=== PATIENT | female | born 1960 | race Caucasian/White ===

== ENCOUNTER 2022-02-05 07:56 | Inpatient (IN) | payer OTHER ==
[~2022-02-05] VITALS: Ht 165.1 cm; Wt 54.9 kg
--- NOTE | 2022-02-05 08:00 | NUR ---
TO ER BED1. [id number] FROM HOME FOR C/O ABDOMINAL PAIN 04/18 X1 DAY. DENIES N/V. ATTACHED TO MONITOR. WARM BLANKET PROVIDED FOR COMFORT. DR ANDREW AT BEDSIDE. AWAITING MD ORDERS.
[2022-02-05 08:38] LABS: BASOPHILS % (AUTO) 0.4 % (0.0-2.0); EOSINOPHILS % (AUTO) 1.6 % (0.0-6.0); HEMATOCRIT 39 % (33-45); HEMOGLOBIN 13.1 g/dL (11.5-14.8); LYMPHOCYTES # (AUTO) 0.5 K/uL (0.8-4.8); LYMPHOCYTES % (AUTO) 11.9 % (20.0-44.0); MEAN CORPUSCULAR HGB CONC 34 g/dl (31.0-36.0); MEAN CORPUSCULAR VOLUME 90 fL (82-100); MONOCYTES # (AUTO) 0.3 K/uL (0.1-1.30); MONOCYTES % (AUTO) 7.3 % (2.0-12.0); NEUTROPHILS # (AUTO) 3.3 K/uL (1.8-8.9); NEUTROPHILS % (AUTO) 78.8 % (43.0-81.0); PLATELET COUNT (AUTO) 175 K/uL (150-450); RED BLOOD CELL COUNT(AUTO) 4.35 MIL/uL (4.0-5.2); WHITE BLOOD COUNT (AUTO) 4.1 K/uL (4.3-11.0)
--- NOTE | 2022-02-05 08:41 | NUR ---
PT TAKEN TO CT VIA SUSIE
[2022-02-05 08:49] LABS: ALBUMIN 3.6 g/dL (3.4-5.0); BILIRUBIN,DIRECT 0.1 mg/dL (0.0-0.2); BILIRUBIN,TOTAL 0.4 mg/dL (0.2-1.0); CREATININE 0.8 mg/dL (0.6-1.3); POTASSIUM 3.9 mmol/L (3.5-5.1); TOTAL PROTEIN, SERUM 6.9 g/dL (6.4-8.2)
[2022-02-05 08:54] LABS: CALCIUM, SERUM 8.1 mg/dL (8.5-10.1)
--- NOTE | 2022-02-05 09:29 | NUR ---
COVID TEST COLLECTED AND SENT
[2022-02-05] MEDS ORDERED: IV NS 0.9% 1,000 ML BAG IV ONE (09:30)
[2022-02-05] MEDS ORDERED: HYDROMORPHONE 1 MG/1 ML DISP.SYRIN ONE ×2 (09:32→12:18)
[2022-02-05] MEDS ORDERED: ONDANSETRON HCL/PF 4 MG/2 ML VIAL ONE ×2 (09:32→13:25)
--- NOTE | 2022-02-05 09:38 | NUR ---
VERBAL ORDER FROM DR ANDREW 0.5MG DILAUDID IV FOR PAIN AND 4MG OF ZOFRAN IV.
--- NOTE | 2022-02-05 09:55 | NUR ---
STILL NOT ABLE TO PROVIDE URINE DESPITE NUMEROUS REQUESTS
[2022-02-05] MEDS ORDERED: HYDROMORPHONE 1 MG/1 ML DISP.SYRIN IV ONE ×2 (10:00→21:45)
[2022-02-05] MEDS ORDERED: ONDANSETRON HCL/PF - ER 4 MG/2 ML VIAL IV ONE (10:00)
--- NOTE | 2022-02-05 11:07 | NUR ---
URINE COLLECTED AND SENT TO THE LAB
[2022-02-05 11:26] LABS: BILIRUBIN,URINE NEGATIVE (NEGATIVE); COLOR,URINE YELLOW (YELLOW); LEUKOCYTE ESTERASE ,URINE NEGATIVE (NEGATIVE); NITRITE, URINE NEGATIVE (NEGATIVE); PROTEIN,URINE NEGATIVE (NEGATIVE); UGLUCOSE NEGATIVE (NEGATIVE); UROBILINOGEN,URINE 0.2 EU/dL (0.2)
[2022-02-05] MEDS ORDERED: MAGNESIUM HYDROXIDE 30 ML UDC PO PRN (11:30)
[2022-02-05] MEDS ORDERED: Z GUARD REMEDY 4 OZ OINT TP PRN (11:30)
[2022-02-05] MEDS ORDERED: HYDROMORPHONE INJ 2 MG/ML DISP.SYRIN IV PRN (11:30)
[2022-02-05 11:44] LABS: BACTERIA,URINE Few /HPF (None Seen); RBC,URINE 0-2 /HPF (0-2); WBC,URINE 0-2 /HPF (0-3)
--- NOTE | 2022-02-05 11:56 | NUR ---
SEEN BY DR PANIAGUA
[2022-02-05] MEDS: IV NS 0.9% 1,000 ML IV PRN (12:36)
--- NOTE | 2022-02-05 12:56 | NUR ---
Kathy virgen in ED - 02/05/22 at 1440 by SOPHIE REFUSED NG TUBE INSERTION AND SIGNING CONSENTS FOR SURGERY TILL SHE TALKS TO DR MIR MD AWARE
[2022-02-05] MEDS: ONDANSETRON HCL/PF 4 MG/2 ML VIAL IVP PRN (13:30)
--- NOTE | 2022-02-05 14:37 | NUR ---
PERES AT THE BEDSIDE
--- NOTE | 2022-02-05 14:39 | NUR ---
Kathy virgen in [facility] - 02/05/22 at 1442 by AVELINO PERES AT THE [facility]
--- NOTE | 2022-02-05 15:14 | NUR ---
BED GIVEN 320-1 AFTER SURGERY
--- NOTE | 2022-02-05 15:26 | NUR ---
REPORT GIVEN TO OR NURSE JANESSA
--- NOTE | 2022-02-05 15:26 | NUR ---
THE PATIENT IS TRANSFERED TO OR IN STABLE CONDITION AND PER POLICY
[2022-02-05] MEDS ORDERED: FENTANYL PF 250MCG/5ML AMPUL ONE (16:33)
[2022-02-05] MEDS ORDERED: MIDAZOLAM HCL 2 MG/2ML VIAL ONE (16:34)
[2022-02-05] MEDS ORDERED: HYDROMORPHONE INJ 2 MG/ML DISP.SYRIN ONE (16:34)
[2022-02-05] MEDS ORDERED: FAMOTIDINE/PF INJ 20 MG/2 ML VIAL IV ONE (16:35)
[2022-02-05] MEDS ORDERED: GLYCOPYRROLATE 0.2 MG/ML VIAL ONE (16:55)
[2022-02-05] MEDS ORDERED: CLINDAMYCIN 900 MG/6 ML VIAL ONE (16:55)
[2022-02-05] MEDS ORDERED: BUPIVACAINE 0.5 % PF 150 MG/30 ML VIAL ONE (17:01)
[2022-02-05] MEDS ORDERED: METRONIDAZOLE 500MG/ NS 100ML 100 ML IV ONE (17:01)
[2022-02-05] MEDS ORDERED: LEVOFLOXACIN 500 MG /D5W 100ML 100 ML IV ONE (17:01)
[2022-02-05] MEDS ORDERED: ANESTHESIA TRAY IN PYXIS 1 EA TRAY MC ONE (18:17)
[2022-02-05] MEDS ORDERED: FENTANYL PF 100MCG/2ML AMPUL ONE (18:28)
[2022-02-05 19:05] VITALS: BP 116/72
--- NOTE | 2022-02-05 19:06 | NUR ---
RN Receiving report. PT AOx4, VSS, states pain is 10/10. Able to express concerns. Pt arrived with one abdominal dressing, clean, dry and intact. O.R. Nurse provides report. All safety precautions take, table and call light at bedside, bed at lowest position.
--- NOTE | 2022-02-05 19:15 | NUR ---
TELE/RN ADMITTING NOTE RECEIVED REPORT FROM KEVYN GAMINO. PATIENT ARRIVED TO UNIT FROM OR AT APPROX. 1900. PATIENT WAS ADMITTED WITH CECAL VOLVULUS S/P RIGHT HEMICOLECTOMY WITH DR. HESTER. PATIENT IS ALERT AND ORIENTED X 4. ABLE TO MAKE NEEDS KNOWN. C/O ABDOMINAL PAIN 04/18 - WILL ADMINISTER PRN PAIN MEDS PER MD ORDERS. CONTINUES ON O2 2L VIA NC WITH NO S/SX OF RESPIRATORY DISTRESS NOTED. IV ACCESS TO LEFT AC #20G INTACT, PATENT AND SALINE LOCKED. CONTINUES ON IV ABX S/P SURGERY. STARTED ON CLEAR LIQUID DIET WITH NO S/SX OF NAUSEA OR VOMITING AT THIS TIME. CADE CATHETER IN PLACE DRAINING CLEAR, YELLOW URINE TO GRAVITY. RIGHT SIDE ABDOMINAL SURGICAL INCISION C/D/I. TELE MONITOR IN PLACE. VACCINATED X 2 AND BOOSTER AGAINST COVID 19. PATIENT ORIENTED TO ROOM, CALL LIGHT AND UNIT. CALL LIGHT WITHIN REACH. ASPIRATION, FALL AND SAFETY PRECAUTIONS MAINTAINED. ALL NEEDS ATTENDED TO AT THIS TIME.
[2022-02-05] MEDS: METOCLOPRAMIDE HCL 10 MG/2 ML VIAL IV SCH ×2 (19:37→23:59)
[2022-02-05] MEDS: MORPHINE SULFATE INJ 2 MG/ML DISP.SYRIN IV PRN ×2 (19:37→23:59)
[2022-02-05 20:00] VITALS: BP 119/50
--- NOTE | 2022-02-05 21:22 | NUR ---
MS/RN NOTE PATIENT INSISTING ON TAKING CADE CATHETER OUT. STATES SHE "CANT SLEEP OR DO ANYTHING" WITH IT IN. STATES IT FEELS LIKE SHE CAN'T PEE. NOTED CLEAR, YELLOW URINE IN CADE CATHETER. EDUCATED PATIENT ON IMPORTANCE OF MAINTAINING CADE CATHETER S/P SURGERY IN CASE OF DYSURIA OCCURRING. PATIENT DEMANDING TO HAVE IT REMOVED. FISHER SPONGE HOOKING AWARE. CADE CATHETER REMOVED WITH 200CC OF YELLOW URINE NOTED IN BAG.
--- NOTE | 2022-02-05 21:40 | NUR ---
TELE/RN NOTE PATIENT COMPLAINING OF PAIN TO ABDOMEN SURGICAL SITE UNRELIEVED BY MORPHINE. STATES PAIN IS STILL 10/10. NOTIFIED DIRECTOR OF RESIDENCE LIFE MOTOR RACER ALICIA RING WITH NEW ORDER FOR DILAUDID 1MG IV X 1. ORDER INPUTTED AND CARRIED OUT.
[2022-02-06] MEDS: MORPHINE SULFATE INJ 2 MG/ML DISP.SYRIN IV PRN ×8 (02:00→22:01)
[2022-02-06] MEDS: IV NS 0.9% 1,000 ML IV PRN ×2 (02:10→17:51)
[2022-02-06] MEDS: METRONIDAZOLE 500MG/ NS 100ML 500 MG in PREMIX 1 EA IV SCH ×3 (02:10→19:00)
--- NOTE | 2022-02-06 02:30 | NUR ---
MS/RN NOTE PATIENT REQUESTING ROOM CHANGE D/T NOISE LEVEL. PATIENT TRANSFERRED VIA BED TO ROOM 321-1. ALL BELONGINGS TRANSFERRED TO ROOM. ALL NEEDS ATTENDED TO AT THIS TIME.
[2022-02-06] MEDS: METOCLOPRAMIDE HCL 10 MG/2 ML VIAL IV SCH ×3 (05:46→17:17)
[2022-02-06] MEDS ORDERED: ESTR1TAB28 PO (06:16)
[2022-02-06] MEDS ORDERED: BUPR-54 PO (06:16)
[2022-02-06] MEDS ORDERED: FLUO40CA49 PO (06:16)
[2022-02-06] MEDS ORDERED: OSIM40TA PO (06:16)
--- NOTE | 2022-02-06 06:20 | NUR ---
MS/RN CLOSING NOTE PATIENT CURRENTLY RESTING IN BED. AWAKE, ALERT AND ORIENTED X 4. ABLE TO MAKE NEEDS KNOWN. C/O CONTINUED PAIN TO ABDOMINAL SURGICAL SITES WITH NO RELIEF FROM MORPHINE. BRICKLAYER SUPERVISOR X [employer] WIREMAN AWARE - WILL ENDORSE TO AM SHIFT REGARDING POSSIBLE PAIN MANAGEMENT CONSULT. PATIENT IS ON ROOM AIR WITH NO S/SX OF RESPIRATORY DISTRESS NOTED. IV ACCESS TO LEFT AC #20G INTACT AND PATENT. CONTINUES ON IVF NS @ 75ML/HR. CONTINUES ON IV ABX. CONTINUES ON CLEAR LIQUID DIET WITH NO S/SX OF N/V THIS SHIFT. CALL LIGHT WITHIN REACH. ASPIRATION, FALL AND SAFETY PRECAUTIONS MAINTAINED. WILL ENDORSE PLAN OF CARE TO ONCOMING SHIFT RN.
[2022-02-06 06:28] LABS: BASOPHILS % (AUTO) 0.1 % (0.0-2.0); HEMATOCRIT 37 % (33-45); LYMPHOCYTES # (AUTO) 0.2 K/uL (0.8-4.8); LYMPHOCYTES % (AUTO) 1.7 % (20.0-44.0); MEAN CORPUSCULAR HGB CONC 32 g/dl (31.0-36.0); MEAN CORPUSCULAR VOLUME 91 fL (82-100); MONOCYTES # (AUTO) 0.5 K/uL (0.1-1.30); MONOCYTES % (AUTO) 4.9 % (2.0-12.0); NEUTROPHILS # (AUTO) 9.1 K/uL (1.8-8.9); NEUTROPHILS % (AUTO) 93.3 % (43.0-81.0); PLATELET COUNT (AUTO) 166 K/uL (150-450); RED BLOOD CELL COUNT(AUTO) 4.07 MIL/uL (4.0-5.2); WHITE BLOOD COUNT (AUTO) 9.8 K/uL (4.3-11.0)
[2022-02-06 07:02] LABS: CREATININE 0.8 mg/dL (0.6-1.3); MAGNESIUM 2.3 mg/dL (1.8-2.4); PHOSPHORUS 2.9 mg/dL (2.5-4.9); POTASSIUM 4.3 mmol/L (3.5-5.1)
[2022-02-06 07:19] LABS: THYROID STIMULATING HORMONE 2.314 uIU/mL (0.358-3.74)
--- NOTE | 2022-02-06 07:30 | NUR ---
MS/RN CLOSING NOTE PATIENT CURRENTLY RESTING IN BED. AWAKE, ALERT AND ORIENTED X 4. ABLE TO MAKE NEEDS KNOWN. C/O OF PAIN 9/10 AT SURGICAL SITE, WILL GIVEN PRN PAIN MED. PATIENT IS ON ROOM AIR WITH NO S/SX OF RESPIRATORY DISTRESS NOTED. IV ACCESS TO LEFT AC #20G INTACT AND PATENT. CONTINUES ON IVF NS @ 75ML/HR. CONTINUES ON IV ABX. CONTINUES ON CLEAR LIQUID DIET WITH NO S/SX OF N/V THIS SHIFT. CALL LIGHT AND TABLE WITHIN REACH. ASPIRATION, FALL AND SAFETY PRECAUTIONS MAINTAINED, WILL CONTINUE TO MONITOR.
--- NOTE | 2022-02-06 07:30 | NUR ---
MS/RN NOTE PATIENTS CONTACTS: SONAL (SISTER): [phone] SALLY VASQUEZ (AUNT): [phone] [place] (BOYFRIEND): [phone] PATIENTS PRIMARY PCP: DR. PINON AT [facility] [place]
[2022-02-06] MEDS ORDERED: PANTOPRAZOLE 40 MG VIAL IV SCH (09:00)
[2022-02-06] MEDS ORDERED: GABA300C PO (11:28)
[2022-02-06] MEDS: HYDROCODONE/APAP 5/325MG TABLET PO PRN (18:03)
[2022-02-06 20:00] VITALS: BP 106/59
--- NOTE | 2022-02-06 20:01 | NUR ---
MS/RN CLOSING NOTE PATIENT CURRENTLY RESTING IN BED. AWAKE, ALERT AND ORIENTED X 4. ABLE TO MAKE NEEDS KNOWN. PATIENT IS ON ROOM AIR WITH NO S/SX OF RESPIRATORY DISTRESS NOTED. IV ACCESS TO LEFT AC #20G INTACT AND PATENT. CONTINUES ON IVF NS @ 75ML/HR. CONTINUES ON IV ABX. PRN PAIN CONTROL ADMINISTERED MD ORDERED. CONTINUES ON CLEAR LIQUID DIET WITH NO S/SX OF N/V THIS SHIFT. CALL LIGHT AND TABLE WITHIN REACH. ASPIRATION, FALL AND SAFETY PRECAUTIONS MAINTAINED, ENDORSED TO PM SHIFT.
[2022-02-06 20:47] VITALS: BP 106/59
--- NOTE | 2022-02-06 22:05 | NUR ---
MS RN OPENING NOTE PT RECEIVED IN BED, AWAKE, A&O X4, CALM, COOPERATIVE. PT ON RA WITH CURRENT O2SAT OF 98%; NO S/S OF RESP DISTRESS, NO SOB OR COUGH, NON-LABORED AND EQUAL BREATHING. VSS, WILL CONTINUE TO MONITOR NEEDED. PT ABLE TO USE BEDSIDE COMMODE. IV ACCESS ON LAC 20G, INTACT AND PATENT, FLUSHES EASILY WITH NO RESISTANCE; NS RUNNING AT 75 ML/HR. PT NOTED TO HAVE BILATERAL SCD PUMPS. BED IN LOWEST POSITION, CALL LIGHT WITHIN REACH, SIDE RAILS UP X2. WILL CONTINUE TO MONITOR THROUGHOUT THE NIGHT.
--- NOTE | 2022-02-06 22:26 | NUR ---
RN NOTE PT COMPLAINS OF 10/10 ABDOMINAL PAIN; PT ADMINISTERED MORPHINE 3 MG. WILL MONITOR FOR EFFECTIVENESS.
[2022-02-07] MEDS: METOCLOPRAMIDE HCL 10 MG/2 ML VIAL IV SCH ×5 (00:03→23:47)
[2022-02-07] MEDS: HYDROCODONE/APAP 5/325MG TABLET PO PRN ×4 (00:03→18:51)
--- NOTE | 2022-02-07 00:03 | NUR ---
RN NOTE PT COMPLAINS OF 8/10 ABDOMINAL PAIN AND REQUESTS FOR NORCO. PT ADMINISTERED NORCO 1 TAB 5/325 MG. WILL MONITOR FOR EFFECTIVENESS.
[2022-02-07] MEDS: MORPHINE SULFATE INJ 2 MG/ML DISP.SYRIN IV PRN ×4 (03:23→21:46)
--- NOTE | 2022-02-07 03:23 | NUR ---
RN NOTE PT COMPLAINS OF 9/10 ABDOMINAL PAIN AND REQUESTS FOR MORPHINE. PT ADMINISTERED MORPHINE 3 MG. WILL MONITOR FOR EFFECTIVENESS.
[2022-02-07 04:00] VITALS: BP 128/74
--- NOTE | 2022-02-07 05:38 | NUR ---
RN NOTE PT COMPLAINS OF A 10/10 ABDOMINAL PAIN AFTER AMBULATING TO USE THE BEDSIDE COMMODE. PT ADMINISTERED NORCO 5/325 MG 1 TAB.WILL MONITOR FOR EFFECTIVENESS.
--- NOTE | 2022-02-07 06:29 | NUR ---
MS RN CLOSING NOTE PT REMAINS IN BED, AWAKE, A&O X4, CALM, COOPERATIVE, SLEPT INTERMITTENTLY THROUGHOUT THE NIGHT. ON RA WITH O2SAT OF 98%; PT SHOWS NO S/S OF RESP DISTRESS, NON-LABORED AND EQUAL BREATHING, NO SOB OR COUGH. VSS THROUGHOUT THE WHOLE NIGHT WITH NO SIGNIFICANT CHANGES. RIGHT LOWER ABDOMINAL INCISION INTACT WITH NO SIGNS OF INFECTION OR DEHISCENCE. LAC 20G INTACT AND PATENT, FLUSHES EASILY WITH NO RESISTANCE, NS RUNNING AT 75 ML/HR. PROVIDED PAIN MANAGEMENT AROUND THE CLOCK AND KEPT PT COMFORTABLE POSSIBLE. ALL DUE MEDS/FLUIDS ADMINISTERED DURING THE NIGHT. BED IN LOWEST POSITION, CALL LIGHT WITHIN REACH, SIDE RAILS UP X2. WILL ENDORSE TO DAYSHIFT NURSE TO CONTINUE CARE.
[2022-02-07 06:31] LABS: BASOPHILS % (AUTO) 0.1 % (0.0-2.0); EOSINOPHILS % (AUTO) 3.1 % (0.0-6.0); HEMATOCRIT 31 % (33-45); HEMOGLOBIN 10.5 g/dL (11.5-14.8); LYMPHOCYTES # (AUTO) 0.4 K/uL (0.8-4.8); LYMPHOCYTES % (AUTO) 4.1 % (20.0-44.0); MEAN CORPUSCULAR HGB CONC 34 g/dl (31.0-36.0); MEAN CORPUSCULAR VOLUME 90 fL (82-100); MONOCYTES # (AUTO) 0.5 K/uL (0.1-1.30); MONOCYTES % (AUTO) 5.7 % (2.0-12.0); NEUTROPHILS # (AUTO) 7.8 K/uL (1.8-8.9); PLATELET COUNT (AUTO) 137 K/uL (150-450); WHITE BLOOD COUNT (AUTO) 8.9 K/uL (4.3-11.0)
[2022-02-07] MEDS: IV NS 0.9% 1,000 ML IV PRN (06:51)
[2022-02-07 06:56] LABS: CALCIUM, SERUM 6.6 mg/dL (8.5-10.1); CREATININE 0.7 mg/dL (0.6-1.3); POTASSIUM 3.5 mmol/L (3.5-5.1)
--- NOTE | 2022-02-07 07:08 | NUR ---
MS RN OPENING NOTE RECEIVED PT IN BED, ASLEEP BUT EASILY ROUSED. A&O X4, ABLE TO MAKE NEEDS KNOWN. ON RA WITH O2SAT OF 98%; PT SHOWS NO S/S OF RESP DISTRESS, NON-LABORED AND EQUAL BREATHING, NO SOB OR COUGH. C/O OF PAIN 5/10 AT THIS TIME, WILL ADMINISTER PRN PAIN MEDS ORDERED. RIGHT LOWER ABDOMINAL INCISION INTACT WITH NO SIGNS OF INFECTION OR DEHISCENCE. LAC 20G INTACT AND PATENT NS RUNNING AT 75 ML/HR. BED IN LOWEST POSITION, CALL LIGHT WITHIN REACH, SIDE RAILS UP X2, WILL CONTINUE TO MONITOR.
[2022-02-07] MEDS: PANTOPRAZOLE 40 MG/PACK PACK PO SCH (09:57)
[2022-02-07] MEDS: ONDANSETRON HCL/PF 4 MG/2 ML VIAL IVP PRN ×2 (15:02→15:13)
--- NOTE | 2022-02-07 18:00 | NUR ---
PT REFUSED REGLAN , PT STATES " I AM NOT NAUSEATED RIGHT NOW".
--- NOTE | 2022-02-07 19:05 | NUR ---
MS RN CLOSING NOTE PT REMAINS IN BED, AWAKE, A&O X4, CALM, COOPERATIVE, ON RA WITH O2SAT OF 98%; PT SHOWS NO S/S OF RESP DISTRESS, NON-LABORED AND EQUAL BREATHING, NO SOB OR COUGH. RIGHT LOWER ABDOMINAL INCISION INTACT WITH NO SIGNS OF INFECTION OR DEHISCENCE. LAC REMOVED DUE LEAKING, WILL INSERT IV BEFORE END OF SHIFT. PROVIDED PAIN MANAGEMENT AROUND THE CLOCK AND KEPT PT COMFORTABLE POSSIBLE. ALL DUE MEDS/FLUIDS ADMINISTERED DURING THE NIGHT. BED IN LOWEST POSITION, CALL LIGHT WITHIN REACH, SIDE RAILS UP X2. WILL ENDORSE TO PM SHIFT.
--- NOTE | 2022-02-07 19:30 | NUR ---
RN OPENING NOTES RECEIVED PT IN BED, WATCHING TV. AOx4, ABLE TO MAKE NEEDS KNOWN. ON RA AND TOLERATING WELL. NO SOB NOTED. NO S/SX OF RESPIRATORY DISTRESS NOTED. IV ACCESS NOT CURRENTLY PRESENT BECAUSE IV WAS NOT PATENT. SAFETY PRECAUTIONS IN PLACE: BED IN LOWEST, LOCKED POSITION, SIDERAILS UPx2, AND BRAKES ON. TABLE AND CALL LIGHT WITHIN REACH. WILL CONTINUE TO MONITOR.
--- NOTE | 2022-02-07 21:05 | NUR ---
RN NOTES ABLE TO INSERT 22G IV ON RIGHT HAND. IV IS INTACT, PATENT, AND FLUSHING WELL.
--- NOTE | 2022-02-07 21:46 | NUR ---
RN NOTES ADMINISTERED MORPHINE FOR PAIN PER MD ORDER. VS WNL. WILL CONTINUE TO MONITOR. WASTED 0.5 ML PER ORDER WITH KEVYN HAGER.
--- NOTE | 2022-02-07 22:19 | NUR ---
RN NOTES PT HAVING ALLERGIC REACTION, REDNESS AND ITCHINESS, TO TAPE. ALICIA RING MADE AWARE. ORDERED 25 MG PO OF BENADRYL ONCE. WILL CONTINUE TO MONITOR.
[2022-02-07] MEDS ORDERED: diphenhydrAMINE HCL 25 MG CAPSULE PO ONE (22:30)
--- NOTE | 2022-02-07 22:30 | NUR ---
RN NOTES PT REQUESTED TO HAVE IV REMOVED DUE TO ITCHING AND REDNESS. HYPERION ADMINISTRATOR, ALICIA RING, MADE AWARE AND APPROVED OF PT HAVING NO IV SITE. WILL CONTINUE TO MONITOR.
[2022-02-07 22:54] LABS: BILIRUBIN,URINE NEGATIVE (NEGATIVE); COLOR,URINE YELLOW (YELLOW); LEUKOCYTE ESTERASE ,URINE NEGATIVE (NEGATIVE); NITRITE, URINE NEGATIVE (NEGATIVE); PH,URINE 6.5 (5.0-8.0); PROTEIN,URINE NEGATIVE (NEGATIVE); UGLUCOSE NEGATIVE (NEGATIVE); UROBILINOGEN,URINE 0.2 EU/dL (0.2)
[2022-02-08] MEDS: HYDROCODONE/APAP 5/325MG TABLET PO PRN ×6 (02:15→23:07)
--- NOTE | 2022-02-08 02:15 | NUR ---
RN NOTES ADMINISTERED NORCO FOR PAIN PER MD ORDER. VS WNL. WILL CONTINUE TO MONITOR.
[2022-02-08 06:17] LABS: EOSINOPHILS % (AUTO) 3.6 % (0.0-6.0); HEMATOCRIT 30 % (33-45); HEMOGLOBIN 10.3 g/dL (11.5-14.8); LYMPHOCYTES # (AUTO) 0.3 K/uL (0.8-4.8); LYMPHOCYTES % (AUTO) 4.3 % (20.0-44.0); MEAN CORPUSCULAR HGB CONC 34 g/dl (31.0-36.0); MEAN CORPUSCULAR VOLUME 89 fL (82-100); MONOCYTES # (AUTO) 0.4 K/uL (0.1-1.30); MONOCYTES % (AUTO) 4.7 % (2.0-12.0); NEUTROPHILS # (AUTO) 6.6 K/uL (1.8-8.9); NEUTROPHILS % (AUTO) 87.4 % (43.0-81.0); PLATELET COUNT (AUTO) 159 K/uL (150-450); RED BLOOD CELL COUNT(AUTO) 3.37 MIL/uL (4.0-5.2); WHITE BLOOD COUNT (AUTO) 7.6 K/uL (4.3-11.0)
[2022-02-08] MEDS: METOCLOPRAMIDE HCL 10 MG/2 ML VIAL IV SCH ×4 (06:27→23:39)
--- NOTE | 2022-02-08 06:30 | NUR ---
RN CLOSING NOTES REPORT GIVEN TO DAYSHIFT NURSE. PT STABLE. NO DISTRESS NOTED.
[2022-02-08 06:35] LABS: ALBUMIN 2.6 g/dL (3.4-5.0); BILIRUBIN,TOTAL 0.3 mg/dL (0.2-1.0); CALCIUM, SERUM 7.1 mg/dL (8.5-10.1); CREATININE 0.6 mg/dL (0.6-1.3); POTASSIUM 3.3 mmol/L (3.5-5.1); TOTAL PROTEIN, SERUM 5.9 g/dL (6.4-8.2)
--- NOTE | 2022-02-08 06:38 | NUR ---
RN NOTES ADMINISTERED NORCO FOR PAIN PER MD ORDER. VS WNL. WILL CONTINUE TO MONITOR.
[2022-02-08 06:46] LABS: MAGNESIUM 2.8 mg/dL (1.8-2.4)
[2022-02-08 07:04] LABS: PHOSPHORUS 0.8 mg/dL (2.5-4.9)
--- NOTE | 2022-02-08 07:30 | NUR ---
MS RN OPENING NOTES RECEIVED PATIENT ON BED, AWAKE AND A/O X4. ON ROOM AIR TOLERATING WELL. NO SOB NOTED. NOT IN DISTRESS. WITH NO COMPLAINTS OF PAIN OR DISCOMFORT AT THIS TIME. WITH NO IV ACCESS. PATIENT REFUSED IV INSERTION. SAFETY MEASURES IN PLACED. CALL LIGHT WITHIN REACH. BED ON LOWEST LOCKED POSITION, SIDE RAILS UP X2. WILL CONTINUE TO MONITOR.
[2022-02-08 08:00] VITALS: BP 136/81
[2022-02-08] MEDS: PANTOPRAZOLE 40 MG/PACK PACK PO SCH (08:37)
[2022-02-08] MEDS ORDERED: POTASSIUM CHLORIDE 20 MEQ TAB.PRT.SR PO SCH (09:30)
--- NOTE | 2022-02-08 10:46 | NUR ---
SS NOTE: SS consult requested for Disability Application. The pt. is a 62 year old female who was admitted to Med Surg due to Cecal volvulus. per EMR the pt. had complaints of abdominal pain. SW met with pt. at bedside. The pt. is alert & oriented x 4 and makes good eye contact. The pt. appears well-groomed. SW provided paperwork with instructions on required information for application and ways to apply. Pt. stated she had applied for disability before. Pt. had some questions regarding if she can reopen the same case or different as its a different ailment. SW told pt. that she must call the social security office to address those questions. Pt. expressed understanding. SW provided office number to patient.
[2022-02-08] MEDS: K PHOS NEUTRAL 250 MG TABLET PO SCH ×3 (11:52→23:07)
[2022-02-08 16:11] VITALS: BP 126/71
--- NOTE | 2022-02-08 18:40 | NUR ---
MS RN CLOSING NOTES PATIENT SITTING ON BED, AWAKE AND A/O X4. ON ROOM AIR TOLERATING WELL. NO SOB NOTED. NOT IN DISTRESS. WITH NO COMPLAINTS OF PAIN OR DISCOMFORT AT THIS TIME. WITH NO IV ACCESS. PATIENT STILL REFUSED IV INSERTION. DUE MEDS GIVEN. SAFETY MEASURES IN PLACED. CALL LIGHT WITHIN REACH. BED ON LOWEST LOCKED POSITION, SIDE RAILS UP X2. WILL ENDORSE TO NEXT SHIFT FOR GARY.
--- NOTE | 2022-02-08 19:30 | NUR ---
RN OPENING NOTES RECEIVED PT IN BED, WATCHING TV. AOx4, ABLE TO MAKE NEEDS KNOWN. ON RA AND TOLERATING WELL. NO SOB NOTED. NO S/SX OF RESPIRATORY DISTRESS NOTED. PT REFUSES IV ACCESS. ELECTRICAL CONTINUITY TESTER AWARE. SAFETY PRECAUTIONS IN PLACE: BED IN LOWEST, LOCKED POSITION, SIDERAILS UPx2, AND BRAKES ON. TABLE AND CALL LIGHT WITHIN REACH. WILL CONTINUE TO MONITOR.
[2022-02-08 20:00] VITALS: BP 108/72
--- NOTE | 2022-02-08 23:08 | NUR ---
RN NOTES ADMINISTERED NORCO FOR PAIN PER MD ORDER. VS WNL. WILL CONTINUE TO MONITOR.
[2022-02-09] MEDS: HYDROCODONE/APAP 5/325MG TABLET PO PRN ×3 (03:34→12:59)
--- NOTE | 2022-02-09 03:34 | NUR ---
RN NOTES ADMINISTERED NORCO FOR PAIN PER MD ORDER. VS WNL. WILL CONTINUE TO MONITOR.
[2022-02-09] MEDS: METOCLOPRAMIDE HCL 10 MG/2 ML VIAL IV SCH ×3 (05:42→17:30)
[2022-02-09] MEDS: K PHOS NEUTRAL 250 MG TABLET PO SCH ×3 (05:49→17:26)
--- NOTE | 2022-02-09 06:50 | NUR ---
RN CLOSING NOTES PT IN BED, AWAKE. AOx4, ABLE TO MAKE NEEDS KNOWN. ON RA AND TOLERATING WELL. NO SOB NOTED. NO S/SX OF RESPIRATORY DISTRESS NOTED. PT REFUSES IV ACCESS. PRINCIPAL CLERK TYPIST AWARE. ALL ORDERS CARRIED OUT. ALL NEEDS MET. PT KEPT CLEAN AND DRY. TREATED PAIN THROUGHOUT SHIFT. SAFETY PRECAUTIONS IN PLACE: BED IN LOWEST, LOCKED POSITION, SIDERAILS UPx2, AND BRAKES ON. TABLE AND CALL LIGHT WITHIN REACH. WILL ENDORSE TO ONCOMING SHIFT FOR GARY.
[2022-02-09 07:01] LABS: BASOPHILS % (AUTO) 0.3 % (0.0-2.0); EOSINOPHILS % (AUTO) 4.2 % (0.0-6.0); HEMATOCRIT 33 % (33-45); HEMOGLOBIN 11.2 g/dL (11.5-14.8); LYMPHOCYTES # (AUTO) 0.5 K/uL (0.8-4.8); LYMPHOCYTES % (AUTO) 9.3 % (20.0-44.0); MEAN CORPUSCULAR HGB CONC 34 g/dl (31.0-36.0); MEAN CORPUSCULAR VOLUME 88 fL (82-100); MONOCYTES # (AUTO) 0.4 K/uL (0.1-1.30); NEUTROPHILS # (AUTO) 4.2 K/uL (1.8-8.9); NEUTROPHILS % (AUTO) 79.2 % (43.0-81.0); PLATELET COUNT (AUTO) 210 K/uL (150-450); RED BLOOD CELL COUNT(AUTO) 3.69 MIL/uL (4.0-5.2); WHITE BLOOD COUNT (AUTO) 5.3 K/uL (4.3-11.0)
[2022-02-09 07:34] LABS: CALCIUM, SERUM 7.6 mg/dL (8.5-10.1); CREATININE 0.7 mg/dL (0.6-1.3); PHOSPHORUS 1.9 mg/dL (2.5-4.9); POTASSIUM 3.4 mmol/L (3.5-5.1)
[2022-02-09 08:00] VITALS: BP 129/72
--- NOTE | 2022-02-09 08:07 | NUR ---
MS RN OPENING NOTES RECEIVED PT IN BED ASLEEP. AOx4, ABLE TO MAKE NEEDS KNOWN. NO IV ACCESS PATIENT REFUSING MD AWARE. ON RA BREATHING EVENLY AND UNLABORED. NO SOB NO SIGNS OF DISTRESS NOTED. BED IN LOW POSITION ,LOCKED SIDE RAILS UP X2 . CALL LIGHT WITHIN REACH.
[2022-02-09] MEDS: PANTOPRAZOLE 40 MG/PACK PACK PO SCH (09:03)
[2022-02-09] MEDS ORDERED: POTASSIUM CHLORIDE 20 MEQ TAB.PRT.SR PO SCH (10:30)
--- NOTE | 2022-02-09 13:00 | NUR ---
RN NOTE Clarified with medical case manager, patient is going home, not to a SNF.
--- NOTE | 2022-02-09 18:50 | NUR ---
RN CLOSING NOTES PATIENT RESTING COMFORTABLY IN BED REMAINS ALERT , AWAKE , ORIENTED X 4 ABLE TO MAKE NEEDS KNOWN. ON ROOM AIR WITH BREATHING EVEN AND UNLABORED. ALL DUE MEDICATIONS GIVEN AND TOLERATED WELL WITH NO SIGNS OF ADVERSE REACTION NOTED. SAFETY MEASURES IN PLACE KEPT BED IN LOW POSITION , BRAKES LOCKED , SIDE RAIS UP X 2 FOR SAFETY. CALL LIGHTS WITHIN REACH . ALL NEEDS AND ATTENDED AND MET @ THIS TIME. WILL ENDORSE TO COLD WORKING INSPECTOR RN FOR GARY.
--- NOTE | 2022-02-09 19:30 | NUR ---
DISCHARGE NOTE Received order for discharge. Patient is A/O x 4, able to make needs known. Stable on room air, breathing evenly and unlabored. No SOB or s/s of distress noted. Discharge instructions given, patient verbalized understanding. Patient denies any pain or discomfort at this time. All belongings accounted for, belonging sheet signed. Photo of abdominal incision taken and placed in chart. ID band removed. Patient left in stable condition with friend via private car.
[2022-02-09] MEDS ORDERED: PANT40SU2 PO (22:43)
[2022-02-09] MEDS ORDERED: HYDR-3980 PO (22:43)
== END 2022-02-09 21:00 | disposition home health service (06) | DRG 330 ==
LOC: ER 07:59 → TRANSITION 12:05 → TELE 15:53 → MED 21:12
PROVIDERS: ADMIT Nurse Practitioner Acute Care
PROC: 0DTF0ZZ Resection of Right Large Intestine, Open Approach (ICD-10-PCS; principal; 2022-02-05)
DX: K56.2 Volvulus (principal); E22.2 Syndrome of inappropriate secretion of antidiuretic hormone; E83.39 Other disorders of phosphorus metabolism; E86.1 Hypovolemia; Z90.711 Acquired absence of uterus with remaining cervical stump; Z90.49 Acquired absence of other specified parts of digestive tract; Z88.0 Allergy status to penicillin; Z88.2 Allergy status to sulfonamides; Z85.118 Personal history of other malignant neoplasm of bronchus and lung; T43.95XA Adverse effect of unspecified psychotropic drug, initial encounter; Y92.89 Other specified places as the place of occurrence of the external cause
CPT/HCPCS: 36415; 70450-TC; 80048-TC; 80053-TC; 80076-TC; 81001; 82533; 83735-TC; 84100-TC; 84300-TC; 84443-TC; 85025-TC; 85730-TC; 86850-TC; 87081-TC; 88307-TC; 93307-TC; 97116-TC; 97530-TC; A4216; A6253; A6403; C9113; C9803; G0378; J1170; J1956; J2250; J2270; J2405; J2704; J2765; J3010; J3490; J7030; Q0163